=== PATIENT | female | born 1945 | race Two or more races ===

== ENCOUNTER → 2018-08-18 | Outpatient (CLI) | payer OTHER ==
[~2018-08-18] MED LIST: AMBIEN5 MG; BONIVA2.5 MG PO; CEFZIL125 MG/5 M PO; LIPITOR20 MG; MIACALCIN3.7 ML NS; ULTRAM50 MG PO; ZITHROMAX500 MG PO; [UNRECOGNIZED DRUG - OTHER]; [UNRECOGNIZED DRUG - OTHER]
== END | disposition home or self-care (01) ==
LOC: RAD 501 13:08
DX: J45.901 Unspecified asthma with (acute) exacerbation (principal)

== ENCOUNTER 2019-03-14 11:27 | Outpatient (CLI) | payer OTHER | END 2019-03-14 17:00 | disposition home or self-care (01) | LOC: TOM 11:27 | DX: R10.84 Generalized abdominal pain (principal) | CPT/HCPCS: 74178; Q9965 ==

== ENCOUNTER 2019-03-18 10:39 | Outpatient (CLI) | payer OTHER | END 2019-03-18 10:43 | disposition home or self-care (01) | LOC: SONOGRAMA 10:39 | DX: R10.84 Generalized abdominal pain (principal); K80.20 Calculus of gallbladder without cholecystitis without obstruction ==

== ENCOUNTER → 2019-05-16 | Outpatient (CLI) | payer OTHER | END | disposition home or self-care (01) | LOC: RAD 12:16 | DX: J45.998 Other asthma (principal); R06.02 Shortness of breath ==

== ENCOUNTER 2021-06-30 13:44 | Outpatient (CLI) | payer OTHER | END 2021-06-30 13:49 | disposition home or self-care (01) | LOC: RAD 13:44 | PROVIDERS: ATTEND Specialist | DX: M17.11 Unilateral primary osteoarthritis, right knee (principal) ==

== ENCOUNTER 2022-05-25 14:00 | Outpatient (CLI) | payer OTHER | END 2022-05-25 14:07 | disposition home or self-care (01) | LOC: RAD 14:00 | PROVIDERS: ATTEND Specialist | DX: M17.12 Unilateral primary osteoarthritis, left knee (principal) ==